=== PATIENT | female | born 1980 | race Two or more races ===

== ENCOUNTER 2022-12-29 23:53 | Emergency (ER) | payer MEDICAID, SELFPAY ==
[2022-12-29 23:56] VITALS: BP 182/102; PULSE 82; RESP 18; TEMP 36.6; O2SAT 98; BMI 30.8
--- NOTE | 2022-12-30 00:07 | ED.ALLEREA1 ---
HPI - Allergic Reaction General Chief complaint: Allergic Reaction Stated complaint: SHORTNESS BREATH Time Seen by Provider: 12/30/22 00:05 Source: patient Mode of arrival: walk-in Limitations: no limitations History of Present Illness HPI narrative: stung by a bee left foot 3 days ago. Developed immediate swelling of the foot and redness. Today she feels like her throat and chest are tight. Via parts interpreter she states her foot is also painful. no fever. Not coughing but does feel short of breath MD complaint: Reports allergic reaction Onset (ago): day(s) Related Data Allergies Allergy/AdvReac Type Severity Reaction Status Date / Time No Known Drug Allergies Allergy Verified 12/30/22 00:01 Review of Systems ROS Status of ROS 10 or more systems reviewed and unremarkable except as noted in history and below Exam Constitutional Vital Signs, click to edit/add: Last Vital Signs Temp 97.9 F 12/29/22 23:56 Pulse 82 12/29/22 23:56 Resp 18 12/29/22 23:56 Pulse Ox 98 12/29/22 23:56 O2 Del Method Room Air 12/29/22 23:56 Common normals: no apparent distress, no limitations, healthy appearing and alert HENMT Common normals: normocephalic and head/scalp atraumatic Other: oral is clear . no swelling Eye Common normals: EOMs intact bilaterally and conjunctivae normal Respiratory Common normals: normal respiratory effort, no retractions, no use of accessory muscles and clear to auscultation bilaterally Cardio Common normals: regular rhythm, S1 normal heart sound and S2 normal heart sound GI Common normals: Normal to inspection, nondistended, normoactive bowel sounds present Extremity Other: erythema and mild swelling dorsum left foot Neuro Common normals: CN's II-XII intact bilaterally, moves all extremities, no focal motor deficits and no sensory deficits noted Psych Appearance: grossly normal Course Vital Signs Vital signs: Vital Signs Temperature 97.9 F 12/29/22 23:56 Pulse Rate 82 12/29/22 23:56 Respiratory Rate 18 12/29/22 23:56 Pulse Oximetry 98 12/29/22 23:56 Oxygen Delivery Method Room Air 12/29/22 23:56 Temperature 97.9 F 12/29/22 23:56 Pulse Rate 82 12/29/22 23:56 Respiratory Rate 18 12/29/22 23:56 Pulse Oximetry 98 12/29/22 23:56 Oxygen Delivery Method Room Air 12/29/22 23:56 MDM - Allergic Reaction MDM Narrative Medical decision making narrative: patient presents with a delayed allergic reaction after bee sting 3 days ago. Treated in the department and is feeling better at [facility]. Discharge Plan Discharge Chief Complaint: Allergic Reaction Clinical Impression: Allergic reaction Patient Disposition: Home, Self-Care Instructions: Allergies (ED) Additional Instructions: follow up with your doctor next week Stand Alone Forms: Portal Instructions Referrals: Kirsten Ramos [Primary Care Provider] - 1 week
[2022-12-30 00:16] LABS: Basophils Percent Auto 0.3 % (0.2-2.0); Eosinophils Absolute Auto 0.3 10^3/uL (0.0-0.7); Eosinophils Percent Auto 4.1 % (0.9-7.0); Hematocrit 41.8 % (36.0-48.0); Hemoglobin 13.8 g/dL (12.0-16.0); Immature Granulocytes Abs Auto 0.01 10^3/uL (0.00-0.03); Immature Granulocytes Pct Auto 0.1 % (0.0-0.5); Lymphocytes Absolute Auto 2.3 10^3/uL (1.2-3.8); Lymphocytes Percent Auto 30.9 % (20.5-60.0); Mean Corpuscular Hemoglobin 26.9 pg (26.7-34.0); Mean Corpuscular Volume 81.5 fL (81.0-99.0); Mean Platelet Volume 12.6 fL (9.5-13.5); Monocytes Absolute Auto 0.5 10^3/uL (0.3-0.8); Monocytes Percent Auto 6.9 % (1.7-12.0); Neutrophils Absolute Auto 4.3 10^3/uL (1.4-6.5); Neutrophils Percent Auto 57.7 % (43.0-75.0); Platelet Count 199 10^3/uL (150-450); Red Blood Count 5.13 10^6/uL (4.20-5.40); Red Cell Distribution Width 13.8 % (11.0-15.0); White Blood Count 7.4 10^3/uL (4.0-11.0)
[2022-12-30 00:24] LABS: Anion Gap 12.6; BUN Creatinine Ratio 19.3; Carbon Dioxide 23.9 mmol/L (21.0-32.0); Chloride 103 mmol/L (98-107); Estimated GFR (African America >60 (>=60); Estimated GFR (Non-African Ame >60 (>=60); Glucose 152 mg/dL (74-106); Potassium 3.5 mmol/L (3.5-5.1); Sodium 136 mmol/L (136-145)
[2022-12-30] MEDS: METHYLPREDNISOLONE SOD SUCC PF 125 MG/2 ML VIAL IVP (00:25)
[2022-12-30] MEDS: DIPHENHYDRAMINE HCL 50 MG/ML (1ML) VIAL IV (00:25)
[2022-12-30] MEDS: FAMOTIDINE/PF 20 MG/2 ML VIAL IV (00:25)
[2022-12-30] MEDS: 0.9 % SODIUM CHLORIDE 1,000 ML 999 ML IV (00:25)
== END 2022-12-30 02:05 | disposition home or self-care (01) ==
PROVIDERS: Emergency Provider Internal Medicine; PCP Nurse Practitioner
DX: T63.441A Toxic effect of venom of bees, accidental (unintentional), initial encounter (principal)
CPT/HCPCS: 36415; 80048; 85025; 96374; 96375; 99284; J2930

== ENCOUNTER 2024-03-15 20:38 | Emergency (ER) | payer MEDICAID, SELFPAY ==
[2024-03-15] VITALS (17 sets, daily range): BP systolic 152–197; BP diastolic 108–120; PULSE 88–103; TEMP 36.6; O2SAT 97–99; BMI 28.2
--- NOTE | 2024-03-15 21:08 | ED_ITS ---
HPI HPI - General Adult General Chief complaint: Chest Pain Stated complaint: HEADACHE, HIGH BP, VOMITTING Time Seen by Provider: 03/15/24 21:01 Source: patient and family Mode of arrival: walk-in Limitations: language barrier History of Present Illness HPI narrative: past history of HTN. takes lisinopril. STEPHENSON for 2 weeks. Will decrease but never completely resolve. Increase headache past 3 days. Tingling sensation of her nose. No extremity weakness. Pressure sensation behind her eyes but vision is normal. No photophobia. vomited x 2 today once before coming in. No fever or neck pain. Does not feel off balance daughter is interpreting. occ mild chest and back discomfort. no dyspnea Related Data Home Medications ?Medication ?Instructions ?Recorded ?Confirmed ascorbic acid (vitamin C) 500 mg 500 mg PO QDAY 03/15/24 03/15/24 tablet (Vitamin C) atorvastatin 20 mg tablet 20 mg PO .qhs 03/15/24 03/15/24 brimonidine 0.2 % eye drops 1 drp ophthalmic (eye) BID 03/15/24 03/15/24 ferrous sulfate 325 mg (65 mg 325 mg PO BID 03/15/24 03/15/24 iron) tablet (FeroSul) latanoprost 0.005 % eye drops 1 drp ophthalmic (eye) .qhs 03/15/24 03/15/24 lisinopril 20 mg tablet 20 mg PO BID 03/15/24 03/15/24 metformin 1,000 mg tablet 1,000 mg PO BID 03/15/24 03/15/24 tirzepatide 12.5 mg/0.5 mL 12.5 mg subcut .weekly 03/15/24 03/15/24 subcutaneous pen injector (Mounjaro) Allergies Allergy/AdvReac Type Severity Reaction Status Date / Time No Known Drug Allergies Allergy Verified 03/15/24 20:43 Opioid HPI Opioid Management Most Recent Opioid Data: No Data to Display Review of Systems ROS Status of ROS 10 or more systems reviewed and unremark able except as noted in history and below PFSH PFSH Social History Little interest or pleasure in doing things: not at all Feeling down, depressed, or hopeless: not at all Exam Constitutional Vital Signs, click to edit/add: Last Vital Signs Temp 97.8 F 03/15/24 20:44 Pulse 93 H 03/15/24 22:40 Resp 20 03/15/24 22:40 BP 152/108 H 03/15/24 22:38 Pulse Ox 98 03/15/24 21:20 O2 Del Method Room Air 03/15/24 20:44 Common normals: no apparent distress, average body habitus, oriented x3, no limitations, healthy appearing, alert and well nourished [facility] Common normals: normocephalic and head/scalp atraumatic Eye Common normals: PERRL (no photophobia), EOMs intact bilaterally and conjunctivae normal Respiratory Common normals: normal respiratory effort, no retractions, no use of accessory muscles and clear to auscultation bilaterally Cardio Common normals: regular rate, regular rhythm, S1 normal heart sound and S2 normal heart sound GI Common normals: Normal to inspection, nondistended, normoactive bowel sounds present, soft to palpation and non-tender Extremity Common normals: normal to inspection and full ROM Neuro Common normals: oriented x3, CN's II-XII intact bilaterally, moves all extremities and no focal motor deficits Psych Appearance: grossly normal Course Vital Signs Vital signs: Vital Signs Temperature 97.8 F 03/15/24 20:44 Pulse Rate 102 H 03/15/24 20:44 Respiratory Rate 16 03/15/24 20:44 Blood Pressure 197/119 H 03/15/24 20:44 Pulse Oximetry 99 03/15/24 20:44 Oxygen Delivery Method Room Air 03/15/24 20:44 Temperature 97.8 F 03/15/24 20:44 Pulse Rate 93 H 03/15/24 22:40 Respiratory Rate 20 03/15/24 22:40 Blood Pressure 152/108 H 03/15/24 22:38 Pulse Oximetry 98 03/15/24 21:20 Oxygen Delivery Method Room Air 03/15/24 20:44 Medical Decision Making [facility] Narrative Medical decision making narrative: patient presents with STEPHENSON for 2 weeks. BP elevated tonight . Neuro exam normal. CT brain neg. Troponin normal. BP improved 152 systolic with catapres and headache resolved after magnesium. Patient feeling better and requesting discharge Lab Data Labs: Lab Results 03/15/24 Range/Units 21:03 WBC 6.9 (4.0-11.0) 10^3/uL RBC 4.10 L (4.20-5.40) 10^6/uL Hgb 11.7 L (12.0-16.0) g/dL Hct 34.4 L (36.0-48.0) % MCV 83.9 (81.0-99.0) fL MCH 28.5 (26.7-34.0) pg MCHC 34.0 (29.9-35.2) g/dL RDW 13.8 (11.0-15.0) % Plt Count 228 (150-450) 10^3/uL MPV 12.1 (9.5-13.5) fL Neut % (Auto) 60.3 (43.0-75.0) % Lymph % (Auto) 31.4 (20.5-60.0) % [place] % (Auto) 6.9 (1.7-12.0) % Eos % (Auto) 0.7 L (0.9-7.0) % Baso % (Auto) 0.6 (0.2-2.0) % Neut # (Auto) 4.2 (1.4-6.5) 10^3/uL Lymph # (Auto) 2.2 (1.2-3.8) 10^3/uL [place] # (Auto) 0.5 (0.3-0.8) 10^3/uL Eos # (Auto) 0.1 (0.0-0.7) 10^3/uL Baso # (Auto) 0.0 (0.0-0.1) 10^3/uL Abs Immat Gran (auto) 0.01 (0.00-0.03) 10^3/uL Imm/Tot Granulo (auto) 0.1 (0.0-0.5) % Sodium 133 L (136-145) mmol/L Potassium 3.4 L (3.5-5.1) mmol/L Chloride 98 (98-107) mmol/L Carbon Dioxide 23.8 (21.0-32.0) mmol/L Anion Gap 14.6 BUN 18.0 (7.0-18.0) mg/dL Creatinine 0.85 (0.55-1.02) mg/dL Est GFR ( Amer) >60 (>=60) Est GFR (Non-Af Amer) >60 (>=60) BUN/Creatinine Ratio 21.2 Glucose 103 (74-106) mg/dL Calcium 9.3 (8.5-10.1) mg/dL Troponin I High Sens 7.7 (4.0-51.3) pg/mL Discharge Plan Discharge Chief Complaint: Chest Pain Clinical Impression: Headache, Hypertension Patient Disposition: Home, Self-Care Prescriptions / Home Meds: No Action ascorbic acid (vitamin C) [Vitamin C] 500 mg tablet 500 mg PO QDAY atorvastatin 20 mg tablet 20 mg PO .qhs brimonidine 0.2 % drops 1 drp OPHTHALMIC (EYE) BID ferrous sulfate [FeroSul] 325 mg (65 mg iron) tablet 325 mg PO BID latanoprost 0.005 % drops 1 drp OPHTHALMIC (EYE) .qhs lisinopril 20 mg tablet 20 mg PO BID metformin 1,000 mg tablet 1,000 mg PO BID Mounjaro 12.5 mg/0.5 mL pen injector 12.5 mg SUBCUT .weekly Print Language: Persian Instructions: Acute Headache (ED), Hypertension (ED) Additional Instructions: follow up with your doctor in 2 days for recheck Referrals: Kirsten Ramos NP [Primary Care Provider] - 1 week
--- NOTE | 2024-03-15 21:12 | XR_ITS ---
The [address] [address] Patient Name: EDWIGE VENTURA MRN: [id number] date: 1980 Sex: F Assigned Patient Location: ER Current Patient Location: ER Accession/Order Number: [id number] Exam Date: 03/15/2024 21:26 Report Date: 03/15/2024 22:12 At the request of: DUSTIN LYNN Procedure: XR chest 1V EXAMINATION:XR chest 1V INDICATION:chest pain COMPARISON:None TECHNIQUE:A single frontal view of the chest is submitted. FINDINGS: The cardiomediastinal silhouette is not enlarged. The pulmonary vascularity is within normal limits. The lungs are clear based on chest radiography. There is no costophrenic angle blunting. Calcified granuloma in the right lower lung field. XR/XR chest 1V IMPRESSION: No acute cardiopulmonary process in the chest. Electronically authenticated by: MARY MAYO Date: 03/15/2024 22:12
--- NOTE | 2024-03-15 21:12 | CT_ITS ---
The [address] [address] Patient Name: EDWIGE VENTURA MRN: [id number] date: 1980 Sex: F Assigned Patient Location: ER Current Patient Location: ER Accession/Order Number: [id number] Exam Date: 03/15/2024 21:26 Report Date: 03/15/2024 21:51 At the request of: DUSTIN LYNN Procedure: CT head/brain wo con EXAM: CT head/brain wo con HISTORY: headache/vomiting COMPARISON: None. TECHNIQUE: Axial CT scans through the head were obtained without IV contrast administration. Dose reduction techniques were achieved by using: automated exposure control and/or adjustment of mA and /or kV according to patient size and/or use of iterative reconstruction technique. FINDINGS: There is no acute intracranial hemorrhage or abnormal extra-axial fluid collection. No mass effect or midline shift is seen. There is no evidence of large acute territorial infarction. There is no hydrocephalus. There is mild frontal atrophy To the limit of CT, the posterior fossa appears unremarkable. The calvaria and extra cranial soft tissues are unremarkable. The visualized orbits show no abnormality. The visualized paranasal sinuses show no air-fluid level. Mastoid air cells are clear. CT/CT head/brain wo con IMPRESSION: No acute intracranial process. Electronically authenticated by: WESLEY BRUCE Date: 03/15/2024 21:51
--- NOTE | 2024-03-15 21:12 | ECG_ITS ---
The [facility] Test Date: 2024-03-15 Pat Name: EDWIGE VENTURA Department: Room: - Gender: Female [employer]: : 1980 Requested By: MARY JACKSON Order Number: [id number] Reading MD: LUCIANO DELGADO Measurements Intervals [place] Rate: 99 P: 53 OR: 168 QRS: 82 QRSD: 76 T: 52 QT: 356 QTc: 412 Interpretive Statements 1100 Sinus rhythm 9110 normal ECG No previous ECG available for comparison Electronically Signed On 03-16-2024 20:27:41 EDT by LUCIANO DELGADO
[2024-03-15 21:18] LABS: Basophils Percent Auto 0.6 % (0.2-2.0); Eosinophils Absolute Auto 0.1 10^3/uL (0.0-0.7); Eosinophils Percent Auto 0.7 % (0.9-7.0); Hematocrit 34.4 % (36.0-48.0); Hemoglobin 11.7 g/dL (12.0-16.0); Immature Granulocytes Abs Auto 0.01 10^3/uL (0.00-0.03); Immature Granulocytes Pct Auto 0.1 % (0.0-0.5); Lymphocytes Absolute Auto 2.2 10^3/uL (1.2-3.8); Lymphocytes Percent Auto 31.4 % (20.5-60.0); Mean Corpuscular Hemoglobin 28.5 pg (26.7-34.0); Mean Corpuscular Volume 83.9 fL (81.0-99.0); Mean Platelet Volume 12.1 fL (9.5-13.5); Monocytes Absolute Auto 0.5 10^3/uL (0.3-0.8); Monocytes Percent Auto 6.9 % (1.7-12.0); Neutrophils Absolute Auto 4.2 10^3/uL (1.4-6.5); Neutrophils Percent Auto 60.3 % (43.0-75.0); Platelet Count 228 10^3/uL (150-450); Red Cell Distribution Width 13.8 % (11.0-15.0); White Blood Count 6.9 10^3/uL (4.0-11.0)
[2024-03-15 21:35] LABS: Anion Gap 14.6; BUN Creatinine Ratio 21.2; Calcium 9.3 mg/dL (8.5-10.1); Carbon Dioxide 23.8 mmol/L (21.0-32.0); Chloride 98 mmol/L (98-107); Estimated GFR (African America >60 (>=60); Estimated GFR (Non-African Ame >60 (>=60); Glucose 103 mg/dL (74-106); Potassium 3.4 mmol/L (3.5-5.1); Sodium 133 mmol/L (136-145); Troponin I High Sensitivity 7.7 pg/mL (4.0-51.3)
[2024-03-15] MEDS: CLONIDINE HCL 0.1 MG TABLET PO (21:48)
[2024-03-15] MEDS: MAGNESIUM SULFATE IN WATER 2 GM/50 ML PREMIX IV (22:03)
== END 2024-03-15 23:17 | disposition home or self-care (01) ==
PROVIDERS: Emergency Provider Internal Medicine; PCP Nurse Practitioner
DX: R51.9 Headache, unspecified (principal); I10 Essential (primary) hypertension; Z79.899 Other long term (current) drug therapy
CPT/HCPCS: 36415; 70450; 71045; 80048; 84484; 85025; 93005; 96365; 99285; J3475